=== PATIENT | female | born 1975 | race Hispanic/Latino ===

== ENCOUNTER 2025-01-23 13:32 | Outpatient (CLI) | payer OTHER | END 2025-01-23 13:33 | disposition home or self-care (01) | LOC: CSHRAD 13:32 | PROVIDERS: ATTEND Nurse Practitioner Family | DX: M54.50 Low back pain, unspecified (principal); M47.816 Spondylosis without myelopathy or radiculopathy, lumbar region | CPT/HCPCS: 72100 ==